=== PATIENT | male | born 1980 ===

== ENCOUNTER 2021-08-14 13:21 | Emergency (ER) | payer BC, OTHER ==
[2021-08-14 13:36] VITALS: BMI 25.1
[2021-08-14] MEDS ORDERED: DEXAMETHASONE SOD PHOSPHATE 10 MG/1 ML VIAL PO ONE (14:41)
[2021-08-14] MEDS ORDERED: DEXAMETHASONE SOD PHOSPHATE 4 MG/1 ML VIAL ONE ×2 (15:00→15:03)
[2021-08-14 15:22] LABS: BASO % 0.5 % (0-2.0); EOS % 0.2 % (0-4.5); HEMATOCRIT 40.1 % (35.4-49); HEMOGLOBIN 14.4 GM/dL (11.7-16.9); LYMPH % 12.1 % (8-40); MCH 33.4 pg (25.7-33.7); MCHC 36.1 g/dl (32.0-35.9); MEAN CELL VOLUME 92.5 fl (80-96); MEAN PLT VOLUME 9.3 fl (7.5-11.1); MONO % 15.6 % (3.8-10.2); NEUT % 71.6 % (42.8-82.8); PLATELET COUNT 216 10^3/uL (134-434); RBC 4.33 M/mm3 (4.00-5.60); WHITE BLOOD COUNT 9.7 K/mm3 (4.0-10.0)
[2021-08-14 15:40] LABS: ALBUMIN 4.3 g/dl (3.4-5.0); CALCIUM 9.6 mg/dL (8.5-10.1)
[2021-08-14 15:41] LABS: BLOOD UREA NITROGEN 14.5 mg/dL (7-18)
[2021-08-14 15:43] LABS: CREATININE 1.1 mg/dL (0.55-1.3)
[2021-08-14 15:45] LABS: BILIRUBIN,TOTAL 1.4 mg/dL (0.2-1); TOT PROT 7.7 g/dl (6.4-8.2)
[2021-08-14 18:40] VITALS: BP 112/83; PULSE 73; TEMP 97.8
== END 2021-08-14 18:40 | disposition home or self-care (01) ==
LOC: JER 13:21
DX: U07.1 COVID-19 (principal)
CPT/HCPCS: 36415; 71046-TC-FY; 80053; 84484; 85025; 93005; 93010; 99285-25; J1100